=== PATIENT | female | born 1995 | race Hispanic/Latino ===

== ENCOUNTER 2021-07-14 15:39 | Outpatient (CLI) | payer MEDICAID ==
[2021-07-14 16:05] VITALS: BP 120/83
--- NOTE | 2021-07-14 18:58 | Ultrasound Report ---
US OB limited, US OB BPP wo non-stress INDICATION: wellbeing. TECHNIQUE: Transabdominal. COMPARISON: None available. FINDINGS: There is a single intrauterine . Heart Rate: 167 beats per minute. Position: cephalic. Amniotic Fluid Index (CODY) in cm (if calculated): 7.8. Biophysical Profile: breathing movements: 2 movements:2 posture and tone:2 Qualitative amniotic fluid volume: 2 IMPRESSION: 1. Biophysical profile is normal. Signer Name: Sonido Duff MD Signed: 07/14/2021 6:54 PM Workstation Name: [id number]
== END 2021-07-14 19:15 | disposition home or self-care (01) ==
LOC: TRG 15:39 → APU 15:40 → TRG 19:15
PROVIDERS: ATTEND Obstetrics & Gynecology
DX: Z34.93 Encounter for supervision of normal pregnancy, unspecified, third trimester (principal); Z3A.40 40 weeks gestation of pregnancy
CPT/HCPCS: 59025; 76815; 76819